=== PATIENT | male | born 1940 | race Caucasian/White ===

== ENCOUNTER → 2024-12-15 | Day surgery (SDC) | payer MEDICARE, MEDICAID ==
[~2024-12-15] MED LIST: LIDOCAINE HCL 1% 10 MG/ML 10ML VIAL ONE
== END | disposition home or self-care (01) ==
LOC: RADANGIO 09:37
PROVIDERS: ATTEND Podiatrist Foot & Ankle Surgery
DX: Z45.2 Encounter for adjustment and management of vascular access device (principal); Z79.899 Other long term (current) drug therapy; Z98.890 Other specified postprocedural states
CPT/HCPCS: 36573; J2003; C1725; C1751